=== PATIENT | female | born 1995 | race Two or more races ===

== ENCOUNTER 2018-09-24 12:03 | Emergency (ER) | payer OTHER ==
[~2018-09-24] VITALS: Ht 172.7 cm; Wt 75.3 kg
[2018-09-24 12:08] VITALS: BP 118/82
--- NOTE | 2018-09-24 12:16 | NUR ---
Pt presents to ED with c/o pain at site of known umbillical hernia that patient states, "I have had it for a couple of years." Pt states, "Sometimes it hurts so bad that it feels difficult to breath because the pain comes up to my chest." Pt denies cp, sob, vomiting, or diarrhea. Pt denies increased urinary frequency, flank pain, or burning with urination. Pt states pain is reduced when pt is at rest. Pt states movement and touch increases pain. Pt states, "it will get really hard and painful." NADN. Pt has family at bedside. Pt gown provided. Call light within reach. No other needs expressed at this time.
--- NOTE | 2018-09-24 13:09 | NUR ---
Pt away from ED room at this time at ultrasound.
--- NOTE | 2018-09-24 13:20 | NUR ---
Patient given discharge instructions and they have confirmed that they understand the instructions. Patient ambulatory with steady gait. Pt left with d/c paperwork, prescription, work note, and all personal belongings. Pt encouraged to return to ED if symptoms change or worsen.
== END 2018-09-24 13:51 | disposition home or self-care (01) ==
LOC: ED 13:14
DX: K42.9 Umbilical hernia without obstruction or gangrene (principal)
CPT/HCPCS: 76705; 99284